=== PATIENT | male | born 1985 | race Caucasian/White ===

== ENCOUNTER 2020-07-20 06:51 | Outpatient (NON) | payer BC, SELFPAY ==
[2020-07-20 19:47] LABS: SARS-CoV-2 RNA PCR Positive
== END 2020-07-20 06:52 ==
PROVIDERS: PCP Family Medicine; Visit Provider Physician Assistant
DX: R05 Cough (principal); U07.1 COVID-19
CPT/HCPCS: 87635; C9803; U0003